=== PATIENT | male | born 1960 | race Caucasian/White ===

== ENCOUNTER 2017-06-19 05:26 | Observation (INO) | payer BC ==
[2017-06-19] MEDS ORDERED: Zofran 4 MG/2 ML VIAL IV ONE (05:47)
[2017-06-19] MEDS ORDERED: Nitrostat 0.4 MG (ED) SL ONE ×2 (05:47→05:50)
[2017-06-19] MEDS ORDERED: BABY ASPIRIN 81 MG CHEW PO ONE (05:47)
[2017-06-19] MEDS ORDERED: MORPHINE SULFATE 10 MG/ML IV ONE (05:47)
[2017-06-19] MEDS ORDERED: BABY ASPIRIN 81 MG CHEW ONE (05:50)
[2017-06-19] MEDS ORDERED: Zofran 4 MG/2 ML VIAL ONE (05:55)
[2017-06-19] MEDS ORDERED: MORPHINE SULFATE 10 MG/ML ONE (05:56)
[2017-06-19] MEDS ORDERED: Sodium Chloride 0.9% 1000 ML 1,000 ML IV SCH ×3 (06:00→16:45)
[2017-06-19 06:02] LABS: BASOPHIL % 0.4 % (0.0-0.4); Eosinophil % 4.7 % (0.00-5.0); Granulocytes % 63.2 % (36.0-66.0); Lymphocytes % 20.8 % (24.0-44.0); Mean Cell Volume 90.1 fl (78-100); Mean Corpuscular Hemoglobin 30.3 pg (26-32); Mean Platelet Volume 11.9 fl (6-9.5); Monocytes % 10.9 % (0.0-12.0); Platelet Count 140 K/mm3 (150-450); Red Blood Count 4.76 M/mm3 (4.1-5.6); Red Cell Distribution Width 12.6 % (11.5-14.0); White Blood Count 10.7 K/mm3 (4.0-10.5)
--- NOTE | 2017-06-19 06:02 | ERPHSYRPT ---
<SONAL GARBER - Last Filed: 06/19/17 06:20> - History of Present Illness Time Seen by Provider: 06/19/17 05:30 Historian: patient Exam Limitations: clinical condition Patient Subjective Stated Complaint: pt states he woke up at approx 0400 with lt neck and shouolder pain and is now radiating into his chest and now has pressure in his chest. Triage Nursing Assessment: pt alert and oriented, anwers questions approp. pt ambulate from wheelchair to stretcher without assist. steady gait noted. respirations nonlabored, breaths shallow pt states d/t pain. heart rated 70, sinus rhythm on monitor, murmer noted. Physician History: PATIENT WITH A HISTORY OF 20 PACK YEAR SMOKER, BARRETTS ESOPHAGITIS AND PANCREATITIS AWAKENED WITH LEFT ARM, SHOULDER AND NECK PAIN DISCOMFORT. STATES PAIN PROGRESSED TO SUBSTERNAL CHEST DISCOMFORT, RATES PAIN SCALE 8/10 ASSOCIATED WITH DYSPNEA. DENIES DIAPHOREIS AND PALPITATIONS. STATES HE HAS HAD A NORMAL STRESS TEST 12 YEARS AGO FOR CHEST PAIN. Timing/Duration: today Activities at Onset: none Quality: pressure, throbbing Location: substernal, shoulder Chest Pain Radiation: no radiation Severity of Pain-Max: severe Severity of Pain-Current: severe Modifying Factors: Improves With: breathing, lying down Associated Symptoms: shortness of breath, hurts to breathe Prior Chest Pain/Cardiac Workup: stress test (12 YEARS AGO) Nitro Today/Relief: 0.4 mg x 3, provided by ED Aspirin Treatment Today: 81 mg x 4, provided by ED Allergies/Adverse Reactions: No Known Drug Allergies Allergy (Verified 06/19/17 05:49) Home Medications: Clindamycin HCl [Clindamycin HCl] 300 mg PO QID 06/19/17 [History] Omeprazole [Omeprazole] 40 mg PO BID 06/19/17 [History] Hx Tetanus, Diphtheria Vaccination/Date Given: Yes Hx Influenza Vaccination/Date Given: No Hx Pneumococcal Vaccination/Date Given: No Immunizations Up to Date: Yes - Review of Systems Constitutional: No Fever, No Chills Eyes: No Symptoms Ears, Nose, & Throat: No Symptoms Respiratory: No Symptoms, No Cough, No Dyspnea Cardiac: No Symptoms, Chest Pain, No Edema, No Syncope Abdominal/Gastrointestinal: Abdominal Pain, No Nausea, No Vomiting, No Diarrhea Genitourinary Symptoms: No Symptoms, No Dysuria Musculoskeletal: No Back Pain, No Neck Pain Skin: Skin Lesions, No Rash Neurological: No Dizziness, No Focal Weakness, No Sensory Changes Psychological: No Symptoms Endocrine: No Symptoms All Other Systems: Reviewed and Negative - Past Medical History Pertinent Past Medical History: Yes GI Medical History: GERD Other Medical History: barrets esophagus - Past Surgical History Past Surgical History: Yes Gastrointestinal: Cholecystectomy Genitourinary: Kidney Surgery Other Surgical History: kidney donor, back surgery - Social History Smoking Status: Former smoker Exposure to second hand smoke: No Drug Use: none Patient Lives Alone: No - Nursing Vital Signs Nursing Vital Signs: Initial Vital Signs Temperature 97.3 F 06/19/17 05:28 Pulse Rate 77 06/19/17 05:28 Respiratory Rate 20 06/19/17 05:28 Blood Pressure 142/96 06/19/17 05:28 O2 Sat by Pulse Oximetry 100 06/19/17 05:28 Pain Scale Pain Intensity 3 - Physical Exam General Appearance: no apparent distress, alert Eye Exam: PERRL/EOMI, eyes nml inspection Ears, Nose, Throat Exam: normal ENT inspection, moist mucous membranes Neck Exam: normal inspection, non-tender, supple, full range of motion Respiratory Exam: normal breath sounds, lungs clear, No respiratory distress Cardiovascular Exam: regular rate/rhythm, normal heart sounds Gastrointestinal/Abdomen Exam: soft, normal bowel sounds, tenderness ( EPIGASTRIC AND PERIUMBILICAL TENDERNESS), No mass Back Exam: normal inspection, No CVA tenderness, No vertebral tenderness Extremity Exam: normal inspection, normal range of motion Neurologic Exam: alert, oriented x 3, cooperative, normal mood/affect, sensation nml, No motor deficits Skin Exam: normal color, warm, dry SpO2 Interpretation: normal SpO2: 100 Oxygen Delivery: Nasal Cannula - Course EKG Interpreted by Me: RATE, Sinus Rhythm, NORMAL AXIS Ordered Tests: Active Orders 24 hr Category Date Time Status EKG-ER Only STAT Care 06/19/17 05:47 Active EKG-ER Only STAT Care 06/19/17 07:32 Active IV Insertion STAT Care 06/19/17 05:47 Active Oxygen-ED Only NASAL CANNULA 2 lpm Care 06/19/17 05:47 Active ABDOMEN AND PELVIS W CONTRAST [CT] Stat Exams 06/19/17 05:54 Completed CHEST WITH CONTRAST [CT] Stat Exams 06/19/17 05:52 Completed AMYLASE Stat Lab 06/19/17 05:45 Completed CBC W DIFF Stat Lab 06/19/17 05:45 Completed CMP Stat Lab 06/19/17 05:45 Completed LIPASE Stat Lab 06/19/17 05:45 Completed MAGNESIUM Stat Lab 06/19/17 05:45 Completed PROTIME WITH INR Stat Lab 06/19/17 05:45 Completed TROPONIN Q3H Lab 06/19/17 05:45 Completed TROPONIN Q3H Lab 06/19/17 09:00 Ordered TROPONIN Q3H Lab 06/19/17 12:00 Ordered TROPONIN Q3H Lab 06/19/17 15:00 Ordered TROPONIN Q3H Lab 06/19/17 18:00 Ordered Medication Summary Generic Name Dose Route Start Last Admin Trade Name Freq PRN Reason Stop Dose Admin Sodium Chloride 1,000 mls @ 100 mls/hr 06/19/17 06:00 06/19/17 05:53 Sodium Chloride 0.9% 1000 Ml IV 07/19/17 05:59 100 mls/hr .Q10H BRAULIO Administration Sodium Chloride 1,000 mls @ 100 mls/hr 06/19/17 07:45 Sodium Chloride 0.9% 1000 Ml IV 07/19/17 07:44 .Q10H BRAULIO Discontinued Medications Generic Name Dose Route Start Last Admin Trade Name Freq PRN Reason Stop Dose Admin Aspirin 324 mg 06/19/17 05:47 06/19/17 05:54 Baby Aspirin 81 Mg Chew PO 06/19/17 05:48 324 mg STAT ONE Administration Aspirin Confirm 06/19/17 05:50 Baby Aspirin 81 Mg Chew Administered 06/19/17 05:51 Dose 324 mg .ROUTE .STK-MED ONE Famotidine 20 mg 06/19/17 07:44 06/19/17 07:52 Pepcid 20 Mg Vial IV 06/19/17 07:45 20 mg STAT ONE Administration Famotidine Confirm 06/19/17 07:48 Pepcid 20 Mg Vial Administered 06/19/17 07:49 Dose 20 mg IV .STK-MED ONE Sodium Chloride 1,000 mls @ 500 mls/hr 06/19/17 06:19 06/19/17 06:27 Sodium Chloride 0.9% 1000 Ml IV 06/19/17 08:18 500 mls/hr .Q2H STA Administration Morphine Sulfate 6 mg 06/19/17 05:47 06/19/17 05:57 Morphine Sulfate 10 Mg/Ml IV 06/19/17 05:48 6 mg STAT ONE Administration Morphine Sulfate Confirm 06/19/17 05:56 Morphine Sulfate 10 Mg/Ml Administered 06/19/17 05:57 Dose 10 mg .ROUTE .STK-MED ONE Nitroglycerin 0.4 mg 06/19/17 05:47 06/19/17 05:54 Nitrostat 0.4 Mg (Ed) SL 06/19/17 05:48 0.4 mg STAT ONE Administration Nitroglycerin Confirm 06/19/17 05:50 Nitrostat 0.4 Mg (Ed) Administered 06/19/17 05:51 Dose 0.4 mg SL .STK-MED ONE Nitroglycerin 1 gm 06/19/17 07:44 06/19/17 07:52 Nitro-Bid 2% Ud Packets TOP 06/19/17 07:45 1 gm STAT ONE Administration Nitroglycerin Confirm 06/19/17 07:48 Nitro-Bid 2% Ud Packets Administered 06/19/17 07:49 Dose 1 gm .ROUTE .STK-MED ONE Ondansetron HCl 4 mg 06/19/17 05:47 06/19/17 05:57 Zofran 4 Mg/2 Ml Vial IV 06/19/17 05:48 4 mg STAT ONE Administration Ondansetron HCl Confirm 06/19/17 05:55 Zofran 4 Mg/2 Ml Vial Administered 06/19/17 05:56 Dose 4 mg .ROUTE .STK-MED ONE Lab/Rad Data: Laboratory Result Diagrams 06/19/17 05:45 06/19/17 05:45 Laboratory Results 06/19/17 06/19/17 06/19/17 Range/Units 05:45 05:45 05:45 WBC (4.0-10.5) K/mm3 RBC (4.1-5.6) M/mm3 Hgb (12.5-18.0) gm/dl Hct (42-50) % MCV (78-100) fl MCH (26-32) pg MCHC (32-36) g/dl RDW (11.5-14.0) % Plt Count (150-450) K/mm3 MPV (6-9.5) fl Gran % (36.0-66.0) % Lymphocytes % (24.0-44.0) % Monocytes % (0.0-12.0) % Eosinophils % (0.00-5.0) % Basophils % (0.0-0.4) % Basophils # (0-0.4) INR 0.85 (0.8-3.0) Sodium 145 (136-145) mEq/L Potassium 4.4 (3.5-5.1) mEq/L Chloride 110 H (98-107) mEq/L Carbon Dioxide 23.9 (21-32) mEq/L Anion Gap 15.3 H (5-15) MEQ/L BUN 22 H (9-20) mg/dL Creatinine 0.98 (0.55-1.30) mg/dl Estimated GFR > 60 ML/MIN Glucose 146 H (70-110) MG/DL Calcium 8.8 (8.5-10.1) mg/dL Magnesium 1.9 (1.8-2.4) mg/dL Total Bilirubin 0.30 (0.2-1.0) mg/dL AST 24 (15-37) U/L ALT 21 (12-78) U/L Alkaline Phosphatase 144 H (46-116) U/L Troponin I < 0.017 (0.000-0.056) ng/ml Serum Total Protein 7.4 (6.4-8.2) gm/dL Albumin 3.7 (3.4-5.0) g/dL Amylase 89 (25-115) U/L Lipase 224 (73-393) U/L 06/19/17 Range/Units 05:45 WBC 10.7 H (4.0-10.5) K/mm3 RBC 4.76 (4.1-5.6) M/mm3 Hgb 14.4 (12.5-18.0) gm/dl Hct 42.9 (42-50) % MCV 90.1 (78-100) fl MCH 30.3 (26-32) pg MCHC 33.6 (32-36) g/dl RDW 12.6 (11.5-14.0) % Plt Count 140 L (150-450) K/mm3 MPV 11.9 H (6-9.5) fl Gran % 63.2 (36.0-66.0) % Lymphocytes % 20.8 L (24.0-44.0) % Monocytes % 10.9 (0.0-12.0) % Eosinophils % 4.7 (0.00-5.0) % Basophils % 0.4 (0.0-0.4) % Basophils # 0.04 (0-0.4) INR (0.8-3.0) Sodium (136-145) mEq/L Potassium (3.5-5.1) mEq/L Chloride (98-107) mEq/L Carbon Dioxide (21-32) mEq/L Anion Gap (5-15) MEQ/L BUN (9-20) mg/dL Creatinine (0.55-1.30) mg/dl Estimated GFR ML/MIN Glucose (70-110) MG/DL Calcium (8.5-10.1) mg/dL Magnesium (1.8-2.4) mg/dL Total Bilirubin (0.2-1.0) mg/dL AST (15-37) U/L ALT (12-78) U/L Alkaline Phosphatase (46-116) U/L Troponin I (0.000-0.056) ng/ml Serum Total Protein (6.4-8.2) gm/dL Albumin (3.4-5.0) g/dL Amylase (25-115) U/L Lipase (73-393) U/L - Progress Progress Note: 06/19/17 06:05 ADMINISTERED IV NORMAL SALINE 200ML/HR, 4 BABY ASPIRIN ORALLY, NTG 0.4MG SL X 2 , ZOFRAN 4MG, MORPHINE 6 MG IV 06/19/17 06:59 , CHEST PAIN IMPROVED AFTER NITROGLYCERIN, PATIENT CARE ENDORSED TO DR BLEVINS AT 0710 - Departure Clinical Impression: Chest pain, rule out acute myocardial infarction Condition: Fair Referrals: GAGAN VEGA [Primary Care Provider] - <SONAL BLEVINS - Last Filed: 06/19/17 09:03> - CT Exams chest/abd/pelvis CT Interpretation: Negative, Tele-radiologist Report - Progress Progress Note: 06/19/17 07:43 The patient was initially seen per Dr Garber. 57 y/o former smoker who is a pt of ADE Vega at [facility]. He has no hx of heart disease. He awoke this AM with severe chest pressure pain radiating to the left shoulder and neck. Some nausea. Hurt to take deep breath. No fall or injury. He came to ER. Pain is better after NTG and morphine. Still some residual pressure. He has hx of pancreatitis a few years ago. He had labs for upper abd pain 2 weeks ago. He works in project design. Quit smoking and lost weight recently. Father had early age MO. PE: Awake, alert. PERRL. No sceral icterus. O-P clear. Neck supple. ROM intact in shoulder with ?discomfort. Chest clear. Cor reg without rub. Abd soft and he denies point tenderness. ND. Extr no edema. EKG #2: NSR. HR 80. QTC normal at 446. No acute ST-T changes. Q wave lead III. Await CT chest. Will add NTG paste and pepcid. He will likely need rule out MO protocol as pain sounds suspicious for cardiac origin. 06/19/17 09:02 Pain improved with meds. He warrants serial troponin and cardiology consult. Called Dr Sol (oc) who agrees for OP obs tele. Pt and aware and agree. Discussed with .: Ebenezer Will see patient in: hospital (observation) Counseled pt/family regarding: lab results, diagnosis, need for follow-up, rad results - Departure Time of Disposition: 09:02 Departure Disposition: Observation Critical Care Time: No
[2017-06-19] MEDS ORDERED: Sodium Chloride 0.9% 1000 ML 1,000 ML IV STA (06:19)
[2017-06-19 06:30] LABS: ALBUMIN 3.7 g/dL (3.4-5.0); ALKALINE PHOSPHATASE 144 U/L (46-116); ANION GAP 15.3 MEQ/L (5-15); BLOOD UREA NITROGEN 22 mg/dL (9-20); CHLORIDE 110 mEq/L (98-107); Carbon Dioxide 23.9 mEq/L (21-32); Glucose 146 MG/DL (70-110); LIPASE 224 U/L (73-393); MAGNESIUM 1.9 mg/dL (1.8-2.4); Potassium 4.4 mEq/L (3.5-5.1); SGOT/AST 24 U/L (15-37); SGPT/ALT 21 U/L (12-78); SODIUM 145 mEq/L (136-145); Total Protein 7.4 gm/dL (6.4-8.2)
[2017-06-19 07:05] LABS: INR 0.85 (0.8-3.0); PROTIME 9.4 SECONDS (8.83-12.87)
[2017-06-19] MEDS ORDERED: Pepcid 20 MG VIAL IV ONE ×2 (07:44→07:48)
[2017-06-19] MEDS ORDERED: NITRO-BID 2% UD PACKETS TOP ONE (07:44)
[2017-06-19] MEDS ORDERED: NITRO-BID 2% UD PACKETS ONE (07:48)
--- NOTE | 2017-06-19 08:34 | XRAY ---
Indication: Abdominal tenderness. Multiple contiguous axial images obtained through the abdomen and pelvis using 80 cc Isovue 370 contrast only. Comparison: None CT chest reported separately. Stomach is distended with food/fluid. Noncontrasted bowel loops appear nonobstructed. There is mild/moderate diffuse scattered colonic fecal debris throughout. Also mild scattered colonic diverticulosis without diverticulitis. Normal air-filled appendix. There has been cholecystectomy and left nephrectomy. No free fluid/air. Remaining liver, pancreas, spleen, adrenal glands, right kidney, right ureter, bladder, and aorta appear normal in CT appearance and attenuation. No pathologic retroperitoneal lymphadenopathy. Osseous structures intact with minimal degenerative changes throughout the spine. Intact midline ventral hernia mesh graft. Impression: 1. Fecal stasis without obstruction. 2. Colonic diverticulosis without diverticulitis. 3. No acute intra-abdominal/pelvic abnormalities. CT DI 21.70
--- NOTE | 2017-06-19 08:37 | XRAY ---
Indication: Left neck and left chest pain. Multiple contiguous axial images obtained through the chest using 80 cc Isovue 370 contrast and PE protocol. Comparison: None There is satisfactory opacification of the pulmonary arteries to include the lobar and segmental branches. No filling defect or pulmonary embolus. Heart is not enlarged. Prominent epicardiac fat. Aorta is normal in course and caliber. A few bilateral hilar calcified nodes. No pathologic mediastinal lymphadenopathy. Examination of the lung parenchyma demonstrates mild bilateral dependent atelectasis and tiny right base calcified granuloma. No suspicious pulmonary mass, infiltrate, consolidation, or effusion. Bony thorax intact with previous lower cervical fusion surgery. CT abdomen reported separately. Impression: 1. Negative pulmonary embolus. Evidence for old granulomatous disease. 2. No acute cardiopulmonary abnormalities. CT DI 21.70
[2017-06-19] MEDS ORDERED: TYLENOL 325 MG PO PRN (09:43)
[2017-06-19] MEDS ORDERED: Sodium Chloride 0.9% 500 ML 500 ML IV SCH (09:43)
[2017-06-19] MEDS ORDERED: Senokot-S Tablet PO PRN (09:43)
[2017-06-19] MEDS ORDERED: Zofran 4 MG/2 ML VIAL IV PRN (09:43)
[2017-06-19] MEDS ORDERED: MAALOX ES 30 ML UNIT DOSE PO PRN (09:43)
[2017-06-19] MEDS ORDERED: MILK OF MAGNESIA 30 ML PO PRN (09:43)
[2017-06-19] MEDS ORDERED: MORPHINE SULFATE 4 MG INJ IV PRN (10:58)
[2017-06-19] MEDS ORDERED: MORPHINE SULFATE 2 MG INJ IV PRN (10:58)
[2017-06-19] MEDS ORDERED: NITRO-BID 2% UD PACKETS TOP SCH (14:00)
[2017-06-19 15:48] VITALS: O2SAT 93
[2017-06-19 16:03] VITALS: BP 106/61; PULSE 84
[2017-06-19] MEDS ORDERED: Pepcid 20 MG VIAL IV SCH (22:00)
--- NOTE | 2017-06-20 07:52 | SSS ---
DISCHARGE DIAGNOSIS: CHEST PAIN. HISTORY OF PRESENT ILLNESS: The patient is a 57 year-old white male patient who woke up this morning with complaints of pain to his left shoulder and then to his chest. The patient reports it has been going on for several hours. He became concerned and presented to the emergency room because he was concerned about his heart. PAST MEDICAL/SURGICAL HISTORY: The patient has past history of gastroesophageal reflux disease. He takes presently omeprazole 40 mg twice a day. He apparently had also been diagnosed with having Hamilton's esophagus. He has previously also had pancreatitis. MEDICATIONS: The patient is currently taking Clindamycin for a dental abscess and other than omeprazole he is on no other medications. ALLERGIES: NKDA. PHYSICAL EXAMINATION: Revealed a well nourished, well developed 57 year-old white male patient in no obvious distress. HEENT: Normocephalic, atraumatic. Pupils equal round reactive to light. Extraocular movements intact. Oropharynx is pink and moist. NECK: Supple without lymphadenopathy, thyromegaly or JVD. CHEST: Clear to auscultation with good air movement bilaterally. HEART: Regular rate and rhythm without murmurs, rubs or gallops. ABDOMEN: Soft, nontender, nondistended without hepatosplenomegaly or palpable masses. EXTREMITIES: Without clubbing, cyanosis or edema. NEUROLOGIC: The patient is alert and oriented x3 with no focal deficits noted. LAB DATA AND TESTS: Revealed the troponins are currently all less than 0.017. He had a metabolic panel with sugar 146 nonfasting, BUN 22, creatinine 0.98. The patient's electrolytes were normal. Liver enzymes are normal. The patient's white blood cell count was noted to be 10,700. His hemoglobin is 14.4 and PLT count 140,000. International normalized ratio 0.85. He had CT scan which was negative for pulmonary embolus and evidence of only granulomatous disease is present. No acute cardiopulmonary abnormalities are noted. Otherwise CT scan of the abdomen showed fecal stasis without obstruction, chronic diverticulosis without diverticulitis and no acute intra-abdominal pathologies are otherwise noted. HOSPITAL COURSE: The patient was initially given morphine and Nitro. The Nitro did cause him to have headache therefore it was discontinued. The patient otherwise is free of discomfort other than he said he has shoulder tenderness. Having had several troponins being drawn all negative and the patient being pain free he was felt to be ready for discharge. He was instructed to find a accounting manager controller and we will help him to obtain a consultation with Dr. Glenn Juarez for follow up. He is instructed to take aspirin 81 mg a day in the interim and to avoid any heavy physical activity particularly involving the upper extremities.
--- NOTE | 2017-06-20 08:28 | CONS ---
CONSULT DATE: 06/19/2017 BRIEF HISTORY: This is a 57 year-old male who was seen because of chest pain. The symptoms started early this morning when he was awaken with a pain in the left shoulder and left arm. He described this as sharp which was aggravated by deep inspiration. It seems to be worse when he lays down and gets better when he sits up. Later on he also felt some chest tightness. There is no diaphoresis. The chest pain has abated but he still has some occasional pain on the left shoulder again that is aggravated by deep inspiration. His serial troponin I's have been normal. The patient is a fairly active individual. He does aerobics several times a week and has had no effort-related chest pains. He has never had myocardial infarction or heart failure. CARDIAC RISK FACTORS: Negative for diabetes. No hypertension. He smokes intermittently. No known hyperlipidemia. FAMILY HISTORY: Positive for coronary artery disease. Father had myocardial infarction in his 40's but no intervention has been performed. CURRENT MEDICATIONS: Aspirin, omeprazole, Clindamycin. REVIEW OF SYSTEMS: REGULATORY COMPLIANCE DIRECTOR: No history of stroke. No seizures. He has cervical spine arthritis. RESPIRATORY: He has had bronchitis in the past. GI: He has a history of pancreatitis and also peptic ulcer symptoms. 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 PERIPHERAL VASCULAR: No history of DVT or claudication. HEMATOLOGY: No blood dyscrasia or transfusion. ENDOCRINE: No thyroid disorder. PAST SURGICAL HISTORY: Included kidney donor, cholecystectomy, cervical spine surgery, removal of a growth from the right ear. 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 He has no significant alcohol intake. He is . PHYSICAL EXAMINATION: His blood pressure is 106/61 with heart rate 92, respirations about 14. GENERAL: The patient is a middle aged male who is alert, oriented who is not in any form of distress. HEENT: Unremarkable. NECK: No significant JVD. No carotid bruit. CHEST: The breath sounds are clear bilaterally. CARDIAC: Heart tones are normal. There is no audible gallop. The rhythm is regular. There is an audible rub. ABDOMEN: Soft with normal bowel sounds. No bruits. EXTREMITIES: No significant edema. Good distal pulses. LAB DATA AND DIAGNOSTIC TESTS: The EKG showed diffuse mild ST elevation but no reciprocal ST changes. The serial troponin I is within normal. IMPRESSION: In essence the patient presented with chest pains with some features of pericarditis. I would continue with aspirin at [address] scan did not show any evidence of pulmonary embolism. I am going to get an echocardiogram to assess left ventricular systolic function. In view of the patient's presence of severe risk factors we are going to schedule him for a stress test, will follow up in the clinic.
[2017-06-20] MEDS ORDERED: Ecotrin 325 MG PO SCH (10:00)
[2017-06-20] MEDS ORDERED: FLUCELVAX QUAD 2017-2018 SYR IM ONE (10:00)
== END 2017-06-19 20:08 | disposition home or self-care (01) ==
LOC: ED 05:26 → ICU 09:33 → MED SURG 09:33
PROVIDERS: ADMIT Family Medicine; ATTEND Family Medicine
DX: R07.9 Chest pain, unspecified (principal); M25.512 Pain in left shoulder; R51 Headache; T46.3X5A Adverse effect of coronary vasodilators, initial encounter; K57.90 Diverticulosis of intestine, part unspecified, without perforation or abscess without bleeding
CPT/HCPCS: 36000; 36415; 71260; 74177; 80053; 82150; 83690; 83735; 84484; 85025; 85610; 85652; 93005; 93268; 96360; 96374; 96375; 99285; G0378; J2270; J2405; A9270-GY